=== PATIENT | female | born 1945 | race Caucasian/White ===

== ENCOUNTER → 2018-08-19 | Outpatient (REF) | payer MEDICARE, OTHER ==
[2018-08-19 08:13] LABS: URINE BILIRUBIN - DIPSTICK NEGATIVE (NEGATIVE); URINE BLOOD DIPSTICK LARGE (NEGATIVE); URINE COLOR YELLOW; URINE GLUCOSE - DIPSTICK NEGATIVE (NEGATIVE); URINE KETONE NEGATIVE (NEGATIVE); URINE LEUK ESTERASE SMALL (Negative); URINE NITRITE - DIPSTICK NEGATIVE (Negative); URINE PROTEIN - DIPSTICK 30 mg/dL (NEG-TRACE); URINE SPECIFIC GRAVITY >=1.030; URINE UROBILINOGEN - DIPSTICK 0.2 E.U./dL (0.2)
[2018-08-19 08:47] LABS: URINE CLARITY CLEAR
[2018-08-19 08:48] LABS: ALBUMIN 4.1 g/dL (3.2-5.0); ALKALINE PHOSPHATASE 83 u/l (38-126); ANION GAP 12 (6-22 (CALC)); BILIRUBIN, TOTAL 0.5 mg/dL (0.0-1.4); BUN 14 mg/dL (8-23); BUN/CREATININE RATIO 25 (12-20 (CALC)); CARBON DIOXIDE 28 mmol/l (22-30); CHLORIDE 103 mmol/l (95-108); CREATININE 0.6 mg/dL (0.5-1.0); GFR > 60 ML/MIN (>=60 (CALC)); GFR FOR AFR.AMER. > 60 ML/MIN (>=60 (CALC)); POTASSIUM 4.1 mmol/l (3.5-5.1); SGOT/AST 22 u/l (9-36); SODIUM 139 mmol/l (137-146); TOTAL PROTEIN 6.8 g/dL (6.3-8.2)
[2018-08-19 08:59] LABS: URINE BACTERIA RARE hpf; URINE RBC TNTC RBC/hpf (0-5); URINE SQUAMOUS EPITHELIAL CELL FEW EPI/hpf (0-FEW)
== END | disposition home or self-care (01) ==
LOC: LAB 07:53
PROVIDERS: ATTEND Internal Medicine
DX: R30.9 Painful micturition, unspecified (principal); E11.69 Type 2 diabetes mellitus with other specified complication; B96.4 Proteus (mirabilis) (morganii) as the cause of diseases classified elsewhere

== ENCOUNTER 2019-09-23 | Inpatient (IN) | payer MEDICARE, OTHER ==
--- NOTE | 2019-09-22 17:45 | NUR ---
PT AMBULATED TO ROOMW ITH STEADY GAIT.
--- NOTE | 2019-09-22 19:00 | NUR ---
IV INITIATED, LABS SENT.
[2019-09-22 19:29] LABS: HEMATOCRIT 42.3 % (37.0-47.0); HEMOGLOBIN 13.8 g/dl (12.0-16.0); IMMATURE GRANULOCYTES 0.1 % (0.0-5.0); MEAN CELL VOLUME 87.9 fL CALC (80.0-100.0); MEAN CORPUSCULAR HGB 28.7 pG CALC (26.0-32.0); MEAN CORPUSCULAR HGB CONC 32.6 g/dL CAL (32.0-36.0); NEUT# 6.87 thou/uL (2.00-7.15); RED BLOOD COUNT 4.81 mill/uL (4.20-5.60); RED CELL DISTRI WIDTH 12.6 % (11.5-15.5)
[2019-09-22 19:30] LABS: URINE BILIRUBIN - DIPSTICK NEGATIVE (NEGATIVE); URINE BLOOD DIPSTICK NEGATIVE (NEGATIVE); URINE COLOR YELLOW; URINE GLUCOSE - DIPSTICK NEGATIVE (NEGATIVE); URINE KETONE 40 mg/dL (NEGATIVE); URINE LEUK ESTERASE NEGATIVE (NEGATIVE); URINE NITRITE - DIPSTICK NEGATIVE (Negative); URINE PROTEIN - DIPSTICK NEGATIVE (NEG-TRACE); URINE UROBILINOGEN - DIPSTICK 0.2 E.U./dL (0.2)
[2019-09-22 19:39] LABS: ALBUMIN 4.4 g/dL (3.2-5.0); ALKALINE PHOSPHATASE 88 u/l (38-126); AMYLASE 57 u/l (30-110); ANION GAP 13 (6-22 (CALC)); BILIRUBIN, TOTAL 0.5 mg/dL (0.0-1.4); BUN 12 mg/dL (8-23); BUN/CREATININE RATIO 22 (12-20 (CALC)); CARBON DIOXIDE 30 mmol/l (22-30); CHLORIDE 98 mmol/l (95-108); CREATININE 0.5 mg/dL (0.5-1.0); GFR > 60 ML/MIN (>=60 (CALC)); GFR FOR AFR.AMER. > 60 ML/MIN (>=60 (CALC)); LIPASE 83 u/l (23-300); POTASSIUM 4.4 mmol/l (3.5-5.1); SGOT/AST 28 u/l (9-36); SODIUM 136 mmol/l (137-146); TOTAL PROTEIN 7.5 g/dL (6.3-8.2)
--- NOTE | 2019-09-22 19:40 | NUR ---
RECEIVED REPORT....PT VOMITING LARGE AMT OF LIQUID. NOTIFIED. ORAL CONTRAST CANCELLED.
[2019-09-22 20:53] LABS: ACT PARTIAL THROMBO TIME 25.5 SECONDS (20.0-32.5); PROTHROMBIN TIME 10.7 SECONDS (9.0-12.5)
--- NOTE | 2019-09-22 23:49 | NUR ---
PT C/O PAIN AND NAUSEA. MORPHINE/ZOFRAN GIVEN. NG INSERTED AND TO LIS. RIGHT NARES/ SECURED TO RIGHT NARES. TOLERATED WELL. VOMITED DURING INSERTION. PLACEMENT CHECKED WITH AIR INSERTION. SMALL AMT OF PINKISH BROWN LIQUID.
--- NOTE | 2019-09-22 23:55 | NUR ---
PT FEELS BETTER NOW.
[~2019-09-23] MED LIST: GLIMEPIRIDE2 MG PO; LIPITOR10 M1 PO; LISINOPRIL20 MG PO; OZEMPIC2 MG/1.51 SC
--- NOTE | 2019-09-23 00:45 | NUR ---
REPORT TO DIVYA BHATIA/DANAY
[2019-09-23 01:00] VITALS: BP 132/63
--- NOTE | 2019-09-23 01:00 | NUR ---
TO MS VIA W/C AT THIS TIME
[2019-09-23 04:07] VITALS: BP 113/40
--- NOTE | 2019-09-23 04:15 | NUR ---
PT APPEARS TO BE SLEEPING COMFORTABLY. NO APPARENT DISTRESS. RESP REGULAR & UNLABORED. BED REMAINS LOCKED IN LOW POSITION W/ BEDRAILS UPX2. ITEMS REMAIN WITHIN REACH. CALL VAUGHAN REMAINS WITHIN REACH.
[2019-09-23 05:47] LABS: HEMATOCRIT 39.7 % (37.0-47.0); HEMOGLOBIN 12.9 g/dl (12.0-16.0); IMMATURE GRANULOCYTES 0.3 % (0.0-5.0); MEAN CORPUSCULAR HGB 28.9 pG CALC (26.0-32.0); MEAN CORPUSCULAR HGB CONC 32.5 g/dL CAL (32.0-36.0); NEUT# 5.3 thou/uL (2.00-7.15); RED BLOOD COUNT 4.46 mill/uL (4.20-5.60); RED CELL DISTRI WIDTH 12.7 % (11.5-15.5)
[2019-09-23 06:09] LABS: ANION GAP 11 (6-22 (CALC)); BUN 13 mg/dL (8-23); BUN/CREATININE RATIO 24 (12-20 (CALC)); CARBON DIOXIDE 26 mmol/l (22-30); CHLORIDE 103 mmol/l (95-108); CREATININE 0.6 mg/dL (0.5-1.0); GFR > 60 ML/MIN (>=60 (CALC)); GFR FOR AFR.AMER. > 60 ML/MIN (>=60 (CALC)); POTASSIUM 4.3 mmol/l (3.5-5.1); SODIUM 136 mmol/l (137-146)
--- NOTE | 2019-09-23 07:05 | NUR ---
REPORT RECEIVED FROM DIVYA HERNANDEZ;PT APPEARS TO BE RESTING IN SEMI FOWLERS POSITION;INTRODUCED SELF TO PT AND POC DISCUSSED;RESPIRATIONS EVEN AND UNLABORED ON RA;IV FLUIDS INFUSING WITH EAEE PER ORDER;NG TUBE RUNNING TO LIS;PT DENIES ANY ADDITIONAL NEEDS AT THIS TIME AND IS ENCOURAGED TO CALL FOR ASSISTANCE IF NEEDED;NPO DIET REINFORCED;BED IN THE LOWEST POSITION WITH CALL LIGHT IN REACH;WILL CONTINUE TO MONITOR
[2019-09-23 08:30] VITALS: BP 104/45
--- NOTE | 2019-09-23 08:30 | NUR ---
PT RESTING IN SEMI FOWLERS POSITION,A&O X3;VS OBTAINED AND ASSESSMENT COMPLETED;PT DENIES ANY CURRENT ABDOMINAL PAIN OR NAUSEA,PAIN SCALE AND REPORTING EDUCATED;RESPIRATIONS EVEN AND UNLABORED ON RA,CLEAR LUNG SOUNDS;ABDOMEN DISTENDED/SOFT ON PALPATION AND HYPOACTIVE IN ALL 4 QUADRANTS;STRONG PEDAL PULSES;SKIN INTACT;NG TUBE RUNNING TO LIS WITH EASE,NG TUBE CHECKED FOR PATENCY BY ADMINISTRATION OF 30CC OF AIR;#20G TO RAC INFUSING 1/2 NS @ 125ML/HR,SITE APPEARS HEALTHY;NPO DIET REINFORCED;PT DENIES ANY ADDITIONAL NEEDS AT THIS TIME AND IS ENCOURAGED TO CALL FOR ASSISTANCE IF NEEDED;CALL LIGHT IN REACH;WILL CONTINUE TO MONITOR
--- NOTE | 2019-09-23 09:57 | NUR ---
PT AMBULATING THE HALLWAYS
--- NOTE | 2019-09-23 10:04 | NUR ---
AT BEDSIDE DISCUSSING POC.
--- NOTE | 2019-09-23 10:20 | NUR ---
PT TRANSPORTED TO [facility] FOR SMALL BOWEL SERIES AT THIS TIME IN STABLE CONDITION VIA WHEELCHAIR ACCOMPANIED BY THIS WRITTER.
--- NOTE | 2019-09-23 12:05 | NUR ---
PT ARRIVED BACK TO MED/SURG ROOM 278 IN STABLE CONDITION VIA WHEELCHAIR ACCOMPANIED BY BERNICE ROJAS;PT RE-POSITIONED INTO BED;RESPIRATIONS EVEN AND UNLABORED ON RA;PT REPORTS ABDOMINAL PAIN RATING 7/10 ON THE PAIN SCALE AND REQUESTS PAIN MEDICATION,PT TO BE MEDICATED WITH PRN MORPHINE 2MG IVP AT THIS TIME;PT ALSO REPORTS NAUSEA,WILLARD PAYNE NOTIFIED AND NEW ORDERS RECEIVED;IV FLUIDS RE-STARTED AT 125ML/HR;ACCUCHECK OBTAINED RESULTING IN 115;PT DENIES ANY ADDITIONAL NEEDS AT THIS TIME;NPO DIET REINFORCED;PT ENCOURAGED TO CALL FOR ASSISTANCE IF NEEDED;CALL LIGHT IN REACH;WILL CONTINUE TO MONITOR
--- NOTE | 2019-09-23 12:11 | NUR ---
AT BEDSIDE DISCUSSING POC.
--- NOTE | 2019-09-23 12:22 | NUR ---
PT MEDICATED WITH PRN ZOFRAN 4MG IVP FOR NAUSEA AT THIS TIME.
--- NOTE | 2019-09-23 13:10 | NUR ---
NG TUBE REMOVED AT THIS TIME PER ORDER,PT TOLERATED WELL.FULL LIQUID DIET TO BE PROVIDED PER MD ORDER.
--- NOTE | 2019-09-23 14:50 | NUR ---
PT REPORTS CONTINUED NAUSEA EVEN AFTER ZOFRAN ADMINISTRATION.DID HAVE ONE EPISODE ON VOMITING 450CC OF UNDIGESTED CLEAR FLUID.WILLARD PAYNE NOTIFIED AND NEW ORDERS TO BE RECEIVED.WILL CONTINUE TO MONITOR
[2019-09-23 15:20] VITALS: BP 148/66
--- NOTE | 2019-09-23 15:20 | NUR ---
PT RESTING AT BEDSIDE;RESPIRATIONS REMAIN EVEN AND UNLABORED ON RA;PT DENIES ANY CURRENT PAIN BUT DOES REPORT NAUSEA,PT TO BE MEDICATED WITH PRN PHENERGAN 12.5MG IV BY JAG ENRIQUE;IV FLUIDS CONTINUE TO INFUSE WITH EASE PER ORDER;PT DENIES ANY ADDITIONAL NEEDS AT THIS TIME AND IS ENCOURAGED TO CALL FOR ASSISTANCE IF NEEDED;FALL PRECAUTIONS IN PLACE WITH CALL LIGHT IN REACH;WILL CONTINUE TO MONITOR
--- NOTE | 2019-09-23 19:50 | NUR ---
PT AWAKE SITTING IN CHAIR. ALERT AND ORIENTED X3. RESP EVEN AND UNLABORED. LUNGS CLEAR BILAT. ABD SOFT AND SLIGHTLY DISTENDED WITH HYPOACTIVE BOWEL SOUNDS PRESENT IN ALL FOUR QUADS. NO LOWER EXT EDEMA NOTED. PEDAL PULSES PALPATED BILAT. IV SITE PATENT IN RT A.C. NO REDNESS OR TENDERNESS AT SITE. IVF 1/2NSS AT 125CC/HR. PT DENIES ANY DISCOMFORT AT THIS TIME AND DENIES ANY NAUSEA. WILL CONTINUE TO CLOSELY MONITOR. FREQUENT ROUNDS MADE. CALL VAUGHAN WITHIN REACH.
[2019-09-23 20:15] VITALS: BP 156/64
--- NOTE | 2019-09-23 20:20 | NUR ---
PT DRANK A FULL CUP A WATER AND THEN VOMITED. VOMITED YELLOW BILE. PT ASSISTED WITH NEW GOWN. WILL CONTINUE TO CLOSELY MONITOR. FREQUENT ROUNDS MADE. CALL VAUGHAN WITHIN REACH.
--- NOTE | 2019-09-23 22:23 | NUR ---
PT RESTING IN BED . NO FURTHER VOMITING . DENIES ANY PAIN OR NAUSEA. IV SITE PATENT. FREQUENT ROUNDS MADE. CALL VAUGHAN WITHIN REACH.
--- NOTE | 2019-09-24 | NUR ---
RESTING IN BED. RESP EVEN AND UNLABORED. NO DISTRESS NOTED. OFFERS NO COMPLAINTS. IV SITE PATENT WITH 1/2NSS AT 125CC/HR. FREQUENT ROUNDS MADE. CALL VAUGHAN WITHIN REACH.
--- NOTE | 2019-09-24 04:24 | NUR ---
PT RESTING IN BED WITH EYES CLOSED. RESP EVEN AND UNLABORED. NO DISTRESS NOTED. IV SITE PATENT. NO VOMITING . WILL CONTINUE TO CLOSELY MONITOR. FREQUENT ROUNDS MADE. CALL VAUGHAN WITHIN REACH.
--- NOTE | 2019-09-24 05:10 | NUR ---
PT AWAKE RESTING IN BED. PT DENIES ANY NAUSEA AND STATES SHE FEELS MUCH BETTER AND HAD A GOOD NIGHTS SLEEP. PT DENIES ANY FUTHER VOMITING AND DENIES ANY DISCMFORT. IV SITE PATENT. FREQUENT ROUNDS MADE. CALL VAUGHAN WITHIN REACH.
[2019-09-24 05:32] LABS: HEMOGLOBIN 14.6 g/dl (12.0-16.0); MEAN CELL VOLUME 89.1 fL CALC (80.0-100.0); MEAN CORPUSCULAR HGB 28.3 pG CALC (26.0-32.0); MEAN CORPUSCULAR HGB CONC 31.8 g/dL CAL (32.0-36.0); RED BLOOD COUNT 5.15 mill/uL (4.20-5.60); RED CELL DISTRI WIDTH 12.8 % (11.5-15.5)
[2019-09-24 05:38] LABS: ANION GAP 13 (6-22 (CALC)); BUN 12 mg/dL (8-23); BUN/CREATININE RATIO 28 (12-20 (CALC)); CARBON DIOXIDE 24 mmol/l (22-30); CHLORIDE 103 mmol/l (95-108); CREATININE 0.4 mg/dL (0.5-1.0); GFR > 60 ML/MIN (>=60 (CALC)); GFR FOR AFR.AMER. > 60 ML/MIN (>=60 (CALC)); POTASSIUM 3.8 mmol/l (3.5-5.1); SODIUM 137 mmol/l (137-146)
[2019-09-24 05:39] LABS: HEMATOCRIT 45.9 % (37.0-47.0)
[2019-09-24 08:00] VITALS: BP 139/68
--- NOTE | 2019-09-24 09:00 | NUR ---
PT ALERT AND ORIENTED X 3, AMBULATORY NORMAL. PT WITH ABDOMINAL DISCOMFORT AND NAUSEA. LAST BM THURSDAY. PT DID ATTEMPT TO EAT BREAKFAST, BUT LATER THREW IT ALL UP. PT FELT BETTER AFTER PRESSURE RELIEF FROM VOMITING. LUNGS CLEAR, RA. PT UNCOMFORTABLE, BUT NO ACUTE DISTRESS NOTED.
--- NOTE | 2019-09-24 13:00 | NUR ---
PT VOMITED BREAKFAST, FELT BETTER AFTER. ENCOURAGED TO CONSUME LESS THIS WAS MAKING HER FEEL FULL, INCREASING THE CHANCE OF VOMITING. PAIN MEDICINE EARLIER TODAY CALMED DOWN HER DISCOMFORT CONSIDERABLY.
[2019-09-24 15:20] VITALS: BP 166/72
--- NOTE | 2019-09-24 17:40 | NUR ---
PT DID THROW UP NOON MEAL. PT WILL CONSUME LESS, IF ANYTHING, FOR EVENING MEAL. VISITOR AT BEDSIDE EARLIER TODAY, KEV, WILL BE HER PROXY IF NEEDED.
[2019-09-24 19:30] VITALS: BP 141/71
--- NOTE | 2019-09-24 19:30 | NUR ---
PT RESTING IN BED AWAKE. PT IS ALERT AND ORIENTED X3. SHIFT ASSESSMENT COMPLETED AT THIS TIME. IV PATENT X1. PT WITH COMPLAINTS OF NAUSEA. ENCOURAGE TO NOT DRINK AT THIS TIME. EXPLAINED THAT ZOFRAN NOT DUE UNTIL 2100. CALL LIGHT IN REACH. WILL CONTINUE TO MONIOTR.
--- NOTE | 2019-09-24 20:30 | NUR ---
DR ALEXANDER NOTIFIED OF CONTINUED NAUSEA WITH VOMITTING. NEW ORDERS RECEIVED. DR ACOSTA NOTIFIED WELL. ORDERS FOR RAY IN AM.
--- NOTE | 2019-09-25 | NUR ---
PT RESTING IN BED WITH EYES CLOSED. RESP ARE EVEN AND UNLABORED. NO DISTRESS NOTED. CALL LIGHT IN REACH. WILL CONTINUE TO MONITOR.
--- NOTE | 2019-09-25 03:55 | NUR ---
PT RESTING IN BED WITH EYES CLOSED. RESP ARE EVEN AND UNLABORED. NO DISTRESS NOTED. CALL LIGHT IN REACH. WILL CONTINUE TO MONIOTR,
[2019-09-25 04:32] VITALS: BP 135/77
[2019-09-25 04:34] VITALS: BP 135/77
[2019-09-25 08:00] VITALS: BP 163/69
--- NOTE | 2019-09-25 08:07 | NUR ---
PT WITH NAUSEA AND VOMITING ALREADY THIS MORNING. PT PROVIDED ZOFRAN FOR SAME. ABDOMEN TENDER, DISTENDED SOMEWHAT. PT AWAITS DR ACOSTA CONSULT. RADIOLOGY HAS TAKEN ABDOMINAL XRAY ORDERED.
--- NOTE | 2019-09-25 11:55 | NUR ---
PT SEEN BY DR ALEXANDER AND DR ACOSTA SIMULTANEOUSLY, ORDER RECEIVED FOR NG PLACEMENT. PT TOLERATED WELL WITH VOMTING, CANISTER FILLED WITH 1000 ML GREEN LIQUID WITHIN A FEW MINUTES. PT STATED SHE FEELS MUCH BETTER.
--- NOTE | 2019-09-25 15:46 | NUR ---
NG TUBE ACCIDENTALLY PULLED OUT WHILE PT REPOSITIONED IN BED. BECAUSE SHE WAS GOING TO BE CLAMPED WITH ADMINISTRATION OF CITRATE OF MAGNESIA, IT HAS BEEN LEFT OUT UNTIL SHE EITHER STARTS WITH BOWEL MOVEMENTS OR VOMITING, AT WHICH POINT IT WILL BE REINSERTED. PT SIPPING AT CITRATE OF MAGNESIA SLOWLY.
[2019-09-25 16:43] VITALS: BP 153/65
--- NOTE | 2019-09-25 17:42 | NUR ---
PT SIPPING ON CITRATE OF MAGNESIA VERY SLOWLY INSTRUCTED, STATES THAT SHE IS STARTING TO HAVE SENSATION IN ABDOMEN. NO FURTHER FULLNESS, NAUSEA, OR VOMITING. PT AMBULATED TO BR, ENCOURAGED TO PUSH.
[2019-09-25 20:04] VITALS: BP 130/64
--- NOTE | 2019-09-25 20:10 | NUR ---
Patient is resting in bed alert and oriented, c/o nausea medicated with zofran iv, no distress noted, afebrile, vss, NS infusing at 125ml/hr, skin is warm and flushed red, no emesis noted at thi time, emesis bag provided just in case, will follow up in an hour.
[2019-09-26 00:10] VITALS: BP 129/82
--- NOTE | 2019-09-26 00:30 | NUR ---
FOUND IV SITE LEAKING, REMOVED, IV SHARATH TIP INTACT, NEW IV STARTED 20G LAC, IV FLUIDS INFUSING PER MD ORDERS, NO NEEDS VOICED AT THIS TIME, ASSISTED TO BRP, NO BM NOTED, VOIDED 300ML OF EMERSON URINE, ENCOURAGED TO CALL IF NEEDED, CALL VAUGHAN AT REACH.
--- NOTE | 2019-09-26 05:29 | NUR ---
Patient is resting in bed with eyes closed, arouses easily to stimuli, no pain n/v at this time, will follow up closely, call nieto at reach.
[2019-09-26 05:32] VITALS: BP 126/80
--- NOTE | 2019-09-26 06:38 | NUR ---
pt c/o nausea, states "it feels like I have something stuck in my upper chest." vss, afebrile, cardiac cath technologist in room doing abd/kub xray, will medicate with zofran per MD orders.
[2019-09-26 08:11] VITALS: BP 138/72
[2019-09-26 16:09] VITALS: BP 140/59
--- NOTE | 2019-09-26 18:00 | NUR ---
PATIENT A/O X4, NO C/O PAIN, NO S/S RESP DISTRESS, PATIENT ON ROOM, PATIENT HAD TWO BOWEL MOVEMENTS AFTER SUPPOSITORY GIVEN
[2019-09-26 18:59] VITALS: BP 137/66
[2019-09-26 19:07] LABS: HEMATOCRIT 50.4 % (37.0-47.0); HEMOGLOBIN 16.1 g/dl (12.0-16.0); IMMATURE GRANULOCYTES 0.3 % (0.0-5.0); MEAN CELL VOLUME 88.7 fL CALC (80.0-100.0); MEAN CORPUSCULAR HGB 28.3 pG CALC (26.0-32.0); MEAN CORPUSCULAR HGB CONC 31.9 g/dL CAL (32.0-36.0); NEUT# 3.19 thou/uL (2.00-7.15); RED BLOOD COUNT 5.68 mill/uL (4.20-5.60); RED CELL DISTRI WIDTH 12.7 % (11.5-15.5)
[2019-09-26 19:20] LABS: ALBUMIN 4.3 g/dL (3.2-5.0); ALKALINE PHOSPHATASE 70 u/l (38-126); BUN 34 mg/dL (8-23); BUN/CREATININE RATIO 52 (12-20 (CALC)); CREATININE 0.7 mg/dL (0.5-1.0); GFR > 60 ML/MIN (>=60 (CALC)); GFR FOR AFR.AMER. > 60 ML/MIN (>=60 (CALC)); POTASSIUM 3.5 mmol/l (3.5-5.1); SGOT/AST 28 u/l (9-36); SODIUM 133 mmol/l (137-146); TOTAL PROTEIN 7.4 g/dL (6.3-8.2)
[2019-09-26 19:26] LABS: ANION GAP 19 (6-22 (CALC)); BILIRUBIN, TOTAL 0.8 mg/dL (0.0-1.4); CARBON DIOXIDE 32 mmol/l (22-30); CHLORIDE 86 mmol/l (95-108)
--- NOTE | 2019-09-26 21:00 | NUR ---
PATIENT RESTING IN BED AT THIS TIME-AWAKE ALERT AND ORIENTEDX3. IVF PATENT AND INFUSING INFUSING VIA LEFT FOREARM SITE. SITE IS HEALTHY AT THIS TIME AT 125CC/HR. PATIENT TAKING ICE CHIPS-C/O NAUSEA. VOMITTED APPROX 100CC OF GREEN BILE, PATIENT MEDICATED WITH ZOFRAN 4MG. ABD SOFTLY DISTENDED WITH HYPOACTIVE BS. STATES THAT SHE DID HAVE 3BM'S TODAY. SAFETY PRECAUTIONS REINFORCED. CALL LIGHT IN REACH. WILL CONT TO MONITOR.
[2019-09-27 01:25] VITALS: BP 159/83
--- NOTE | 2019-09-27 01:42 | NUR ---
PATIENT RESTING IN BED-STILL SPITTING UP SMALL AMT OF GREEN FLUID. MEDICATED WITH ZOFRAN 4MG IVP FOR N/V. MEDICATED FOR ABD PAIN-5/10 ON PAIN SCALE WITH MORPHINE. IVF PATENT AND INFUSING AT 125CC/HR. ASSISTED OOB TO BR TO VOID IN TOILET AND THEN BACK TO BED. SAFETY PRECAUTIONS REINFORCED. CALL LIGHT IN REACH. WILL CONT TO MONITOR.
--- NOTE | 2019-09-27 02:30 | NUR ---
PATIENT STATES THAT SHE IS FEELIN A LITTLE BETTER AT THIS TIME. IVF PATENT AND INFUSING AT THIS TIME VIA LEFT FOREARM SITE. CALL LIGHT IN REACH. WILL CONT TO MONITOR.
[2019-09-27 04:11] VITALS: BP 156/75
[2019-09-27 05:22] LABS: HEMATOCRIT 45.8 % (37.0-47.0); HEMOGLOBIN 14.9 g/dl (12.0-16.0); MEAN CELL VOLUME 88.6 fL CALC (80.0-100.0); MEAN CORPUSCULAR HGB 28.8 pG CALC (26.0-32.0); MEAN CORPUSCULAR HGB CONC 32.5 g/dL CAL (32.0-36.0); RED BLOOD COUNT 5.17 mill/uL (4.20-5.60); RED CELL DISTRI WIDTH 12.7 % (11.5-15.5)
[2019-09-27 05:41] LABS: ANION GAP 14 (6-22 (CALC)); BUN 31 mg/dL (8-23); BUN/CREATININE RATIO 38 (12-20 (CALC)); CARBON DIOXIDE 35 mmol/l (22-30); CHLORIDE 85 mmol/l (95-108); CREATININE 0.8 mg/dL (0.5-1.0); GFR > 60 ML/MIN (>=60 (CALC)); GFR FOR AFR.AMER. > 60 ML/MIN (>=60 (CALC)); MAGNESIUM 2.7 mg/dL (1.6-2.3); POTASSIUM 3.6 mmol/l (3.5-5.1); SODIUM 132 mmol/l (137-146)
--- NOTE | 2019-09-27 06:00 | NUR ---
PATIENT RESTING IN BED-SPITTING UP SMALL AMT OF GREEN BILE. ABD IS BECOMING MORE FIRM. MEDICATED WITH ZOFRAN 4MG IVP ORDERED FOR N/V. IVF PATENT AND INFUSING VIA LEFT AC SITE. DENIES ANY PAIN AT THIS TIME. CALL LIGHT IN REACH. WILL CONT TO MONITOR.
[2019-09-27 08:14] VITALS: BP 147/81
--- NOTE | 2019-09-27 08:15 | NUR ---
PATIENT A/OX4, NO C/O PAIN, NO S/S RESP DISTRESS, PATIENT C/O NAUSEA DID NOT WANT ZOFRAN AT THIS TIMEM, PATIENT HAS POSITIVE BOWEL SOUNDS, PATIENT HAD THREE BOWEL MOVEMENTS 09/26/19, WILL CONTINUE TO MONITOR PATIENT, CALL LIGHT WITHIN REACH
--- NOTE | 2019-09-27 12:20 | NUR ---
PATIENT A/OX4, NO C/O PAIN, NO S/S RESP DISTRESS, PATIENT ON ROOM AIR, PATIENT VOMIT X1 SMALL AMOUNT, WILL CONTINUE TO MONITOR PATIENT, CALL LIGHT WITHIN REACH
[2019-09-27 15:26] VITALS: BP 143/50
[2019-09-27 18:20] VITALS: BP 146/70
--- NOTE | 2019-09-27 18:32 | NUR ---
PATIENT A/OX4, NO S/S RESP DISTRESS, PATIENT ON O2 VIA NC, PATIENT NO C/O PAIN, PATIENT COMPLETED HALF OF THE NULYTELY, PATIENT FEELS FULL AND NAUSEATED, PATIENT VOMITED MEDIUM AMOUNT OF GREEN EMESIS, PATIENT HAD NO BOWEL MOVEMENT TODAY, NOTIFIED TRINA FRANK GIVEN, NULYTELY ON HOLD, WILL CONTINUE TO MONITOR PATIENT, CALL LIGHT WITHIN REACH
--- NOTE | 2019-09-27 19:30 | NUR ---
PATIENT RESTING IN BED AT THIS TIME. STILL FEELING NAUSEATED WITH SMALL GREEN EMESIS. VOIDED YELLOW URINE IN BR. TAKING ONLY SMALL AMT OF ICE CHIPS AT A TIME. ABD IS DISTENDED AND FIRM. HYPOACTIVE BS. NO FLATUS. IVF PATENT AND INFUSING VIA LEFT AC SITE AT 125CC/HR. SAFETY PRECAUTIONS REINFORCED. CALL LIGHT IN REACH. WILL CONT TO MONITOR.
--- NOTE | 2019-09-27 21:45 | NUR ---
PATIENT CONT TO VOMIT DARK GREEN BILE FLUID-350CC AT THIS TIME. CONT TO HAE NAUSEA. ABD IS DISTENDED AND FIRM. HYPOACTIVE BS. DR. MOSQUEDA CALL AND NEW ORDER FOR NG TUBE TO LIWS OBTAINED. PATIENT MEDICATED WITH ZOFRAN 4MG IVP AND MORPHINE 2MG IVP FOR 6/10 ON PAIN SCALE. PAATIENT ASSISTED TO BR-WILL REPLACE NG TUBE WHEN SHE IS BACK IN BED. PATIENT IS AWARE OF THE NEW ORDERS. WILL CONT TO MONITOR.
--- NOTE | 2019-09-27 22:30 | NUR ---
PATIENT BACK IN BED-STILL VERY NAUSEATED AND VOMITTING GREEN ANDERSON. BED PLACED IN HIGH FOWLERS POSITION. #16 CONGOLESE NG TUBE PASSED-PATIENT VOMITTED ANOTHER 500CC DURING PASSAGE OF TUBE. INITIAL DRAIN FROM NG TUBE WAS 1500CC OF GREEN BILE. NGT PLACES TO LIWS ORDERED. PATIENT STATES IMMEDIATE RELIEF FROM PAIN AND NAUSEA. ASSIST PATIENT WITH CHANGING GOWN AND LINENS. SAFETY PRECAUTIONS REINFORCED. CALL LIGHT IN REACH. WILL CONT TO MONITOR.
[2019-09-28] VITALS (10 sets, daily range): BP systolic 112–150; BP diastolic 30–84
--- NOTE | 2019-09-28 02:00 | NUR ---
PATIENT RESTING IN BED AT THIS TIME WITH HOB SLIGHTLY ELEVATED AND EYE CLOSED. RESPS ARE EVEN AND UNLABORED. NGT PATENT AND DRAINING GREENISH BROWN FLUID-LIWS. IVF PATENT AND INFUSING VIA LEFT AC SITE. CALL LIGHT IN REACH. WILL CONT TO MONITOR.
[2019-09-28 05:27] LABS: HEMATOCRIT 44.9 % (37.0-47.0); HEMOGLOBIN 14.4 g/dl (12.0-16.0); MEAN CELL VOLUME 88.7 fL CALC (80.0-100.0); MEAN CORPUSCULAR HGB 28.5 pG CALC (26.0-32.0); MEAN CORPUSCULAR HGB CONC 32.1 g/dL CAL (32.0-36.0); RED BLOOD COUNT 5.06 mill/uL (4.20-5.60); RED CELL DISTRI WIDTH 12.6 % (11.5-15.5)
[2019-09-28 05:41] LABS: ANION GAP 11 (6-22 (CALC)); BUN 20 mg/dL (8-23); BUN/CREATININE RATIO 32 (12-20 (CALC)); CARBON DIOXIDE 35 mmol/l (22-30); CHLORIDE 89 mmol/l (95-108); CREATININE 0.6 mg/dL (0.5-1.0); GFR > 60 ML/MIN (>=60 (CALC)); GFR FOR AFR.AMER. > 60 ML/MIN (>=60 (CALC)); POTASSIUM 3.2 mmol/l (3.5-5.1); SODIUM 131 mmol/l (137-146)
--- NOTE | 2019-09-28 06:00 | NUR ---
PATIENT RESTING IN BED-CONT TO FEEL BETTER. NGT PATENT AND CONT TO DRAIN TO DRAIN BROWNISH GREEN FLUID. ABD IS SOFT-NO MORE NAUSEA AT THIS TIME. ZOSYN HUNG ORDERED. DENIES ANY PAIN. SAFETY PRECAUTIONS REINFORCED. CALL LIGHT IN REACH. WILL CONT TO MONITOR.
--- NOTE | 2019-09-28 07:45 | NUR ---
REPORT RECEIVED FROM DIVYA GUERRA. PT SITTING UP IN BED; ALERT AND ORIENTED. DENIES PAIN. RESPIRATIONS EVEN AND UNLABORED ON OXYGEN 2L VIA NC. NG TUBE TO LEFT NARE 52 AT THE NOSE AND SECURED. PT REPORTS FEELING MUCH BETTER AFTER HAVING NG TUBE PLACED AND GOT TO SLEEP WELL. ABDOMEN IS DISTENDED AND SOFT. HYPOACTIVE BS TO UPPER QUANDRANTS; ABSENT BS TO LOWER QUADRANTS. PLAN OF CARE REVIEWED. PT ENCOURAGED TO VERBALIZE CONCERNS. STATES UNDERSTANDING. ASSISTED TO BSC TO VOID; URINE NOW DARK EMERSON. SAFETY MEASURES IN PLACE. CALL LIGHT WITHIN REACH.
--- NOTE | 2019-09-28 08:17 | NUR ---
PT OFF UNIT FOR CT SCAN OF ABDOMEN.
--- NOTE | 2019-09-28 08:20 | NUR ---
BACK TO UNIT IN STABLE CONDITION. REATTACHED NG TUBE TO LIS. IV FLUIDS INFUSING PER ORDER.
--- NOTE | 2019-09-28 09:35 | NUR ---
TRANSPORTED TO OR AT THIS TIME FOR A LAPAROSCOPY WITH POSSIBLE LAPAROTOMY WITH DR. ACOSTA BY DIVYA GREEN. DENTURES REMOVED AND IN DRAWER.
--- NOTE | 2019-09-28 12:15 | NUR ---
The patient has gone to Sx. I did leave theraband for her but will return as she may have to wait to use it depending on postop limitations.
--- NOTE | 2019-09-28 14:12 | NUR ---
PT BACK TO UNIT FROM OR AT 1358 VIA BED. ARRIVED ALERT AND ORIENTED; TALKATIVE AND PLEASED WITH SURGICAL RESULTS. DENIES ANY PAIN. SITTING UP IN BED EATING ICE CHIPS AND UPDATING FAMILY VIA TELEPHONE. ABDOMEN WITH 5 LAPROSCOPIC SURGICAL SITES WITH DERMABOND; ALL APPEAR HEALTHY. IV FLUIDS INFUSING INTO RUQ MIDLINE PLACED IN OR; DRESSING CDI. GELLER DRAINING CLOUDY YELLOW URINE IN ADEQUATE AMOUNTS. SCDS INTACT TO BLE. IS PROVIDED. VSS. OXYGEN IN PLACE 2L VIA NC. WILL CONTINUE TO MONITOR.
--- NOTE | 2019-09-28 16:11 | NUR ---
PT SITTING UP IN BED DEMONSTRATING USE OF INSENTIVE SPIROMETER; 1500. DENIES NAUSEA; TOLERATING ICE CHIPS WELL. VSS. NO OTHER REQUETS OR CONCERNS AT THIS TIME.
--- NOTE | 2019-09-28 20:15 | NUR ---
ASSESSMENT COMPLETED. PT. SITTING UP IN BED WITH NO DISTRESS NOTED.O2 INFUSING PER NC PER ORDER.X5 LAPRISCOPIC PUNCTURES WITH DERMABOND IN PLACE TO ABDOMEN POST SURGICAL. DENIES PASSING ANY GAS;BS HYPOACTIVE. PT.WITH ICE CHIPS ONLY TONIGHT.DENIES PAIN. REVIEWED PRN PAIN MEDICATION WITH PT. WELL SCHED TORADOL; VERBALIZES UNDERSTANDING. UPDATED ON POC. ENCOURAGED TO CALL FOR ANY NEEDS.CALL LIGHT IS IN REACH.
--- NOTE | 2019-09-28 23:58 | NUR ---
PT. SITTING UP ON THE SIDE OF THE BED AND TOLERATING WELL.MEDICATED WITH SCHEDULED MEDS AT THIS TIME.DENIES FURTHER NEEDS. CALL LIGHT IS IN REACH.
[2019-09-29 03:59] VITALS: BP 127/52
--- NOTE | 2019-09-29 04:15 | NUR ---
[id number]- PT.FOUND STANDING IN ROOM WITH OXYGEN OFF AND MIDLINE OUT OF ARM WITH CATHETER TIP INTACT,CATHETER MEASURING 10CM. PT. IS CONFUSED UPON ARRIVAL OF STAFF MEMBER IN ROOM. ASSISTED PT. TO BED AND RE-APPLIED O2 @2LITERS/MIN PER NC AND SPO2 97%. PT. RE-ORIENTED AND AFTER A FEW MINUTES PT.DOES RECALL AND BACK ORIENTED. BED ALARM PLACED FOR SAFETY PRECAUTIONS. NEW IV STARTED #22 GAUGE TO RFA;PT. TOLERATED WELL. NEW CATHETER STRAP APPLIED TO RIGHT THIGH. ICE CHIPS OFFERED. CALL LIGHT IS IN REACH.
[2019-09-29 04:59] LABS: HEMATOCRIT 40.6 % (37.0-47.0); HEMOGLOBIN 12.9 g/dl (12.0-16.0); IMMATURE GRANULOCYTES 0.7 % (0.0-5.0); MEAN CELL VOLUME 90.6 fL CALC (80.0-100.0); MEAN CORPUSCULAR HGB 28.8 pG CALC (26.0-32.0); MEAN CORPUSCULAR HGB CONC 31.8 g/dL CAL (32.0-36.0); NEUT# 6.02 thou/uL (2.00-7.15); RED BLOOD COUNT 4.48 mill/uL (4.20-5.60); RED CELL DISTRI WIDTH 12.8 % (11.5-15.5)
[2019-09-29 05:13] LABS: ANION GAP 12 (6-22 (CALC)); BUN 15 mg/dL (8-23); BUN/CREATININE RATIO 20 (12-20 (CALC)); CHLORIDE 98 mmol/l (95-108); CREATININE 0.8 mg/dL (0.5-1.0); GFR > 60 ML/MIN (>=60 (CALC)); GFR FOR AFR.AMER. > 60 ML/MIN (>=60 (CALC)); MAGNESIUM 2.4 mg/dL (1.6-2.3); POTASSIUM 3.6 mmol/l (3.5-5.1); SODIUM 133 mmol/l (137-146)
[2019-09-29 05:14] LABS: CARBON DIOXIDE 27 mmol/l (22-30)
[2019-09-29 07:49] VITALS: BP 114/52
[2019-09-29 11:10] VITALS: BP 130/57
[2019-09-29] MEDS ORDERED: PERCOCET 5/325M1 TAB PO (11:35)
--- NOTE | 2019-09-29 12:39 | NUR ---
PT HAS BEEN SEEN BY DR ACOSAT AND ELIUD WEBSTER THIS MORNING, DISCHARGED TO HOME. PT HAS BEEN TOLERATING LIQUID DIET WELL, NO NAUSEA OR VOMITING. PT VERBALIZES UNDERSTANDING OF DC INSTRUCTIONS, READY TO BE TAKEN TO WHEELCHAIR TO DOWNSTAIRS WHEN HER RIDE ARRIVES. PT THANKS STAFF SHE LEAVES.
== END 2019-09-29 13:00 | disposition home or self-care (01) | DRG 337 ==
PROVIDERS: Family Medicine; Nurse Practitioner Family; Surgery; ADMIT Internal Medicine
PROC: 0DNB4ZZ Release Ileum, Percutaneous Endoscopic Approach (ICD-10-PCS; principal; 2019-09-28)
PROC: 0FT44ZZ Resection of Gallbladder, Percutaneous Endoscopic Approach (ICD-10-PCS; 2019-09-28)
PROC: 3E0T3BZ Introduction of Anesthetic Agent into Peripheral Nerves and Plexi, Percutaneous Approach (ICD-10-PCS; 2019-09-28)
DX: K56.51 Intestinal adhesions [bands], with partial obstruction (principal); K80.20 Calculus of gallbladder without cholecystitis without obstruction; E11.9 Type 2 diabetes mellitus without complications; I10 Essential (primary) hypertension; E78.5 Hyperlipidemia, unspecified; Z79.84 Long term (current) use of oral hypoglycemic drugs
CPT/HCPCS: J0131; J1100; J2710; S0164